=== PATIENT | male | born 1970 | race Caucasian/White ===

== ENCOUNTER → 2016-10-27 | Outpatient (CLI) | payer MEDICARE, OTHER ==
[~2016-10-27] MED LIST: ACID CONTROL150 MG PO; ACTIQ400 MCG MM; ADVAIR 250-501 EACH IH; ADVAIR 250/501 DISK IH; ADVAIR 500/501 DISK IH; ANAPROX DS550 M1 PO; ATARAX,VISTARIL25 MG PO; Advair 250/50 Diskus IH; BACTRIM,SEPT1 TABLET PO; CHEWABLE-VITE1 EACH PO; CURCUMIN1 GM PO; CYMBALTA60 MG PO; DESYREL300 MG PO; DICLOFENAC SODI75 MG PO; Dilaudid IL; EQL FLAXSEED O1 EACH PO; FLAX OIL1000 MG PO; FLONASE SENSIM9.9 ML BOTH NARES; FLONASE16 G1 BOTH NARES; FUROSEMIDE20 MG PO; GABAPENTIN600 MG PO; GABAPENTIN800 MG PO; GINGER250 MG PO; GLUCOVANCE 51 TABLET PO; GLYBURIDE-METF1 EAC3 PO; LANTUS 10100 UNITS/ SC; LANTUS 10100 UNITS/ SQ; LISINOPRIL-HCT1 EAC3 PO; LISINOPRIL2.5 MG PO; LOPRESSOR50 MG PO; LUNESTA3 MG PO; METOPROLOL TART50 MG PO; MIRTAZAPINE30 MG PO; MORPHINE IV; MULTI-VITAMIN1 EAC3 PO; NEOMYCIN-POLYMY10 ML BOTH EARS; Neurontin PO; OMEPRAZOLE40 M1 PO; OPANA ER20 MG PO; PAIN PUMP; PRAVACHOL20 MG PO; PRAVASTATIN; PRAVASTATIN SOD20 MG PO; PRINZIDE 20-121 EACH PO; PROMETHAZINE HC25 M1 PO; PROVENTIL HFA6.7 GM IH; Proventil,Ventolin H IH; REMERON30 M2 PO; REMERON30 MG PO; SEROQUEL50 MG PO; SINGULAIR10 MG PO; SPIRIVA1 INHALATI IH; SPRIVIA PO; THEO-DUR,THEOC200 MG PO; TOPAMAX100 MG PO; VENTOLIN HFA18 GM IH; VITAMIN D5000 UNIT PO; XYZAL5 MG PO; ZANTAC150 MG PO; ZESTRIL10 MG PO; ZOMIG5 MG PO; ZYRTEC10 M2 PO; morphine
== END | disposition home or self-care (01) ==
LOC: CDC 14:01
DX: Z01.810 Encounter for preprocedural cardiovascular examination (principal); I10 Essential (primary) hypertension; E11.9 Type 2 diabetes mellitus without complications; G89.4 Chronic pain syndrome; Z88.0 Allergy status to penicillin; Z88.1 Allergy status to other antibiotic agents; Z88.5 Allergy status to narcotic agent; Z88.8 Allergy status to other drugs, medicaments and biological substances; Z91.040 Latex allergy status
CPT/HCPCS: 93000

== ENCOUNTER 2016-11-03 06:33 | Day surgery (SDC) | payer OTHER ==
[~2016-11-03] VITALS: Ht 177.8 cm; Wt 98.2 kg
[2016-11-03 07:58] LABS: POINT-OF-CARE METER ID UU13113694
[2016-11-03 08:08] VITALS: BP 134/75
[2016-11-03 10:30] LABS: POINT-OF-CARE METER ID UU13113675
[2016-11-03 13:35] VITALS: BP 117/76
[2016-11-03 14:40] VITALS: BP 120/77
[2016-11-03 16:30] VITALS: BP 158/68
== END 2016-11-03 17:05 | disposition home or self-care (01) ==
LOC: SDC 06:33
PROVIDERS: Neurological Surgery
DX: Z45.1 Encounter for adjustment and management of infusion pump (principal); G89.4 Chronic pain syndrome; I10 Essential (primary) hypertension; J45.909 Unspecified asthma, uncomplicated; E11.9 Type 2 diabetes mellitus without complications; G47.30 Sleep apnea, unspecified; G82.50 Quadriplegia, unspecified; Z82.5 Family history of asthma and other chronic lower respiratory diseases; Z82.49 Family history of ischemic heart disease and other diseases of the circulatory system; Z83.3 Family history of diabetes mellitus; Z79.4 Long term (current) use of insulin; Z88.0 Allergy status to penicillin
CPT/HCPCS: 82948; C1772; J0131; J1170; J1885; J2405; J3010; J3370